=== PATIENT | male | born 1965 | race Caucasian/White ===

== ENCOUNTER → 2018-04-23 | Outpatient (CLI) | payer OTHER ==
[~2018-04-23] VITALS: Ht 167.6 cm; Wt 130.4 kg
[~2018-04-23] MED LIST: APRESOLINE50 MG PO; ASPIRIN E.C. 8181 MG PO; CARDIZEM120 MG PO; LASIX 40MG TABL40 MG PO; LIPITOR20 MG PO; MULTIPLE VITAMI1 TA5 PO; ZESTRIL40 MG PO
[2018-04-23 16:07] VITALS: BP 120/72; PULSE 80
== END ==
LOC: LIGHT 15:35
DX: G47.33 Obstructive sleep apnea (adult) (pediatric) (principal); E66.01 Morbid (severe) obesity due to excess calories; Z68.42 Body mass index [BMI] 45.0-49.9, adult; Z71.3 Dietary counseling and surveillance; E78.5 Hyperlipidemia, unspecified
CPT/HCPCS: G0463

== ENCOUNTER → 2018-06-01 | Outpatient (CLI) | payer OTHER ==
[~2018-06-01] VITALS: Ht 167.6 cm; Wt 125.2 kg
== END ==
LOC: LIGHT 10:28
DX: Z01.89 Encounter for other specified special examinations (principal)

== ENCOUNTER → 2018-06-11 | Outpatient (CLI) | payer OTHER | LOC: LIGHT 10:45 | DX: G47.33 Obstructive sleep apnea (adult) (pediatric) (principal); E78.5 Hyperlipidemia, unspecified; E66.9 Obesity, unspecified | CPT/HCPCS: G0463 ==

== ENCOUNTER → 2018-06-11 | Outpatient (CLI) | payer OTHER ==
[~2018-06-11] VITALS: Ht 167.6 cm; Wt 123.6 kg
[2018-06-11 15:59] VITALS: BP 120/60; PULSE 80
== END ==
LOC: LIGHT 14:01
DX: G47.33 Obstructive sleep apnea (adult) (pediatric) (principal); E78.5 Hyperlipidemia, unspecified; E66.01 Morbid (severe) obesity due to excess calories; Z68.42 Body mass index [BMI] 45.0-49.9, adult; Z71.3 Dietary counseling and surveillance
CPT/HCPCS: G0463

== ENCOUNTER → 2018-07-23 | Outpatient (CLI) | payer OTHER ==
[~2018-07-23] VITALS: Ht 167.6 cm; Wt 123.4 kg
[2018-07-23 16:14] VITALS: BP 130/82; PULSE 64
== END ==
LOC: LIGHT 13:21
DX: G47.33 Obstructive sleep apnea (adult) (pediatric) (principal); E78.5 Hyperlipidemia, unspecified; E66.01 Morbid (severe) obesity due to excess calories; Z68.41 Body mass index [BMI] 40.0-44.9, adult; Z71.3 Dietary counseling and surveillance
CPT/HCPCS: G0463

== ENCOUNTER → 2018-09-24 | Outpatient (CLI) | payer OTHER ==
[~2018-09-24] VITALS: Ht 167.6 cm; Wt 126.3 kg
[2018-09-24 14:33] VITALS: BP 140/60; PULSE 52
== END ==
LOC: LIGHT 09-03 13:37
DX: G47.33 Obstructive sleep apnea (adult) (pediatric) (principal); E78.5 Hyperlipidemia, unspecified; E66.01 Morbid (severe) obesity due to excess calories; Z68.42 Body mass index [BMI] 45.0-49.9, adult; Z71.3 Dietary counseling and surveillance
CPT/HCPCS: G0463

== ENCOUNTER → 2018-11-05 | Outpatient (CLI) | payer OTHER ==
[~2018-11-05] VITALS: Ht 167.6 cm; Wt 127.7 kg
[2018-11-05 15:36] VITALS: BP 150/70; PULSE 68
== END ==
LOC: LIGHT 11:14
DX: G47.33 Obstructive sleep apnea (adult) (pediatric) (principal); E78.5 Hyperlipidemia, unspecified; E66.01 Morbid (severe) obesity due to excess calories; Z68.42 Body mass index [BMI] 45.0-49.9, adult; Z71.3 Dietary counseling and surveillance
CPT/HCPCS: G0463

== ENCOUNTER → 2018-12-07 | Outpatient (CLI) | payer BC ==
[~2018-12-07] VITALS: Ht 167.6 cm; Wt 131.3 kg
[2018-12-07 16:22] VITALS: BP 134/70; PULSE 80
== END ==
LOC: LIGHT 14:22
DX: G47.33 Obstructive sleep apnea (adult) (pediatric) (principal); E78.5 Hyperlipidemia, unspecified; E66.01 Morbid (severe) obesity due to excess calories; Z68.42 Body mass index [BMI] 45.0-49.9, adult; Z71.3 Dietary counseling and surveillance
CPT/HCPCS: G0463

== ENCOUNTER → 2019-02-11 | Outpatient (CLI) | payer BC | LOC: BHSO 08:54 | DX: Z01.818 Encounter for other preprocedural examination (principal) ==

== ENCOUNTER → 2019-05-31 | Outpatient (CLI) | payer BC | LOC: LIGHT 14:35 | DX: G47.33 Obstructive sleep apnea (adult) (pediatric) (principal); E78.5 Hyperlipidemia, unspecified; E66.01 Morbid (severe) obesity due to excess calories; Z68.42 Body mass index [BMI] 45.0-49.9, adult; Z71.3 Dietary counseling and surveillance ==

== ENCOUNTER 2019-06-16 07:59 | Day surgery (SDC) | payer BC ==
[~2019-06-16] VITALS: Ht 170.2 cm; Wt 128.4 kg
[2019-06-16] VITALS (11 sets, daily range): BP systolic 150–178; BP diastolic 70–88; PULSE 53–77; TEMP 36.6
--- NOTE | 2019-06-16 09:41 | NUR ---
Patient resting on cart and awaits surgery. Sisters in room and IV fluids infusing. Siderails up x2 and call light in reach.
--- NOTE | 2019-06-16 14:35 | NUR ---
Patient recieved post op, Report from [place] pacu. Patient arrived to floor in pain, moaning & groaning. Blood pressure very elevated. Patient awake & alert & oriented. Iv dilaudid given per orders to treat pain. Patient reports is pain still present, but maybe slightly better. He describes as gas pain. He was up to the bathroom & voided. Sitting at edge of bed. Mason drain to bulb suction. Lap stie x4 bandaids intact. Will monitor
--- NOTE | 2019-06-16 16:54 | NUR ---
Patient up and ambulated halls. COntinues to have pain, dialudid per orders for pain. IVf . Vss on O2 will monitorl
--- NOTE | 2019-06-16 19:27 | NUR ---
Patient continues to have abdominal pain. Iv dialudid per orders. He continues to deny nausea. Vss on O2. Scds ble. Bedside report to Muna RN
[2019-06-17 03:27] VITALS: BP 175/75; PULSE 66; TEMP 98.6
--- NOTE | 2019-06-17 05:42 | NUR ---
Patient has rested well overnight. Patient ambulated in the halls several times prior to HS with staff as a SBA. Patient is voiding with no issues. PRN pain medication given per orders for abdominal pain. Lap sites have had a bit of bleeding earlier after ambulation but are clean and dry currently. RUPALI site is CDI, approximately 60ml out of RUPALI drain during shift. Patient has tolerated clear liquids with no nausea. Denies needs at this time, call light within reach.
[2019-06-17 07:17] VITALS: BP 174/74; PULSE 66; TEMP 98.5
--- NOTE | 2019-06-17 09:45 | NUR ---
Patient alert and oriented, answers questions appropriately. Abdomen soft, non tender, non distended. Bowel sounds active x4 quads. No flatus. Lap sites with edges well approximated, no drainage noted. Diet reviewed. Ambulating independently in halls. C/o mild gas pain. No other c/o at this time.
--- NOTE | 2019-06-17 11:29 | NUR ---
SW met with patient to discuss discharge planning. Patient lives independently at home with his family and plans to return there when he is discharged. Patient's PCP is Dr Sanabria and he obtains prescriptions from [facility] in [place]. Patient reports he is independent with all ADLs and does not use any home health services. Patient reports he does have a DPOA-HC. SW requested a copy from his PCP. SW does not anticipate any discharge needs.
[2019-06-17 11:38] VITALS: BP 158/65; PULSE 70; TEMP 98.9
[2019-06-17 16:06] VITALS: BP 166/73; PULSE 63; TEMP 98.3
--- NOTE | 2019-06-17 17:40 | NUR ---
Discharge instructions reviewed with patient, verbalized understanding. Discharged via wheelchair to auto/home with family at 1750.
== END 2019-06-17 17:35 | disposition home or self-care (01) ==
LOC: SDCO 07:59 → SURG 07:59 → SDCO 10:30 → SURG 13:30 → SDCO 06-17 17:35
DX: E66.01 Morbid (severe) obesity due to excess calories (principal); Z68.42 Body mass index [BMI] 45.0-49.9, adult; E88.81 Metabolic syndrome and other insulin resistance; G47.33 Obstructive sleep apnea (adult) (pediatric); I10 Essential (primary) hypertension; E78.5 Hyperlipidemia, unspecified; N28.9 Disorder of kidney and ureter, unspecified; D75.1 Secondary polycythemia; Z79.899 Other long term (current) drug therapy; Z96.651 Presence of right artificial knee joint; Z79.82 Long term (current) use of aspirin
CPT/HCPCS: OP; A9284; J0360; J0690; J1100; J1170; J2405; J2704; J2710; J3010; J7030; J7120

== ENCOUNTER → 2019-06-21 | Outpatient (CLI) | payer BC ==
[~2019-06-21] VITALS: Ht 170.2 cm; Wt 122.5 kg
[2019-06-21 14:14] VITALS: BP 100/50; PULSE 88
== END ==
LOC: LIGHT
DX: G47.33 Obstructive sleep apnea (adult) (pediatric) (principal); E78.5 Hyperlipidemia, unspecified; Z98.84 Bariatric surgery status; Z68.42 Body mass index [BMI] 45.0-49.9, adult; Z71.3 Dietary counseling and surveillance

== ENCOUNTER → 2019-08-02 | Outpatient (CLI) | payer BC ==
[~2019-08-02] VITALS: Ht 170.2 cm; Wt 116.1 kg
[2019-08-02 15:26] VITALS: BP 150/70; PULSE 72
== END ==
LOC: LIGHT 13:20
DX: G47.33 Obstructive sleep apnea (adult) (pediatric) (principal); E78.5 Hyperlipidemia, unspecified; Z98.84 Bariatric surgery status; E66.01 Morbid (severe) obesity due to excess calories; Z68.41 Body mass index [BMI] 40.0-44.9, adult; Z71.3 Dietary counseling and surveillance

== ENCOUNTER → 2019-10-11 | Outpatient (CLI) | payer BC ==
[~2019-10-11] VITALS: Ht 170.2 cm; Wt 107.7 kg
[2019-10-11 13:45] VITALS: BP 160/80; PULSE 56
== END ==
LOC: LIGHT 09-27 14:46
DX: G47.33 Obstructive sleep apnea (adult) (pediatric) (principal); E78.5 Hyperlipidemia, unspecified; Z98.84 Bariatric surgery status; E66.01 Morbid (severe) obesity due to excess calories; Z68.37 Body mass index [BMI] 37.0-37.9, adult; Z71.3 Dietary counseling and surveillance
CPT/HCPCS: G0463

== ENCOUNTER → 2020-07-03 | Outpatient (CLI) | payer BC ==
[~2020-07-03] VITALS: Ht 170.2 cm; Wt 111.8 kg
[2020-07-03 15:32] VITALS: BP 144/88; PULSE 60
== END ==
LOC: LIGHT 05-22 13:38
DX: E66.8 Other obesity (principal); Z68.38 Body mass index [BMI] 38.0-38.9, adult; E78.5 Hyperlipidemia, unspecified; G47.30 Sleep apnea, unspecified
CPT/HCPCS: G0463